=== PATIENT | male | born 1930 | race Hispanic/Latino ===

== ENCOUNTER 2018-01-02 15:37 | Emergency (ER) | payer MEDICARE ==
[~2018-01-02 15:37] MED LIST: AMIO200T2 PO; ATOR10 PO; DIGO125T87 PO; DUTA.5 PO; ESOM40CA PO; FURO40TA5 PO; MECL12.585 PO; NITR0.4T SL; RIVA20TA PO; SLOMG PO; SPIR25TA4 PO; TAMS0.4C32 PO
[2018-01-02] MEDS ORDERED: SODIUM CHLORIDE 0.9% 500ML 500 ML IV ONE (16:23)
[2018-01-02] MEDS ORDERED: MORPHINE SULFATE 4 MG/1ML SYG ONE (16:24)
[2018-01-02] MEDS ORDERED: ONDANSETRON HCL 4 MG/2 ML VIAL ONE (16:24)
[2018-01-02 16:35] LABS: BASOPHILS % (AUTO) 1.2 % (0.0-5.0); EOSINOPHILS % (AUTO) 1.4 % (0.0-8.0); HEMATOCRIT 38.3 % (42-54); LYMPHOCYTES % (AUTO) 14.4 % (21.0-51.0); MEAN CORPUSCULAR HEMOGLOBIN 32.6 pg (27.0-33.0); MEAN CORPUSCULAR HGB CONC 34.3 g/dL (32.0-36.0); NUCLEATED RED BLOOD CELLS 0.1 % (0.0-0.19); PLATELET COUNT (AUTO) 142 K/uL (130-400); RED BLOOD CELL COUNT(AUTO) 4.03 MIL/uL (4.50-6.20); RED CELL DISTRIBUTION WIDTH 14.3 % (11.0-15.5); WHITE BLOOD COUNT (AUTO) 5.2 K/uL (4.8-10.8)
[2018-01-02 16:46] LABS: CREATININE 1.3 mg/dL (0.5-1.5); POTASSIUM 4.1 mmol/L (3.5-5.1)
[2018-01-02 16:52] LABS: ALBUMIN 3.4 g/dL (3.5-5.0); BILIRUBIN,TOTAL 0.9 mg/dL (0.2-1.0); TOTAL PROTEIN, SERUM 7.9 g/dL (6.0-8.3)
[2018-01-02 17:07] LABS: INR 1.22 (0.85-1.15); PROTHROMBIN TIME 12.8 SEC (9.6-11.6)
[2018-01-02 17:28] LABS: BILIRUBIN,URINE Negative (NEGATIVE); COLOR,URINE Dark Yellow (YELLOW); GLUCOSE, URINE (UA) Negative (NEGATIVE); KETONES,URINE Trace mg/dL (NEGATIVE); LEUKOCYTE ESTERASE ,URINE Negative (NEGATIVE); NITRATE,URINE Negative (NEGATIVE); OCCULT BLOOD,URINE Negative (NEGATIVE); PH,URINE 5.5 (5.0-8.0); PROTEIN,URINE Negative (NEGATIVE)
[2018-01-02 17:29] LABS: APPEARANCE,URINE CLEAR (CLEAR)
[2018-01-02 17:55] LABS: BACTERIA,URINE Rare /HPF (None Seen); RBC,URINE 0-1 /HPF (0-1); SQUAMOUS EPITHELIAL CELL,UR Rare /LPF (0-2); WBC,URINE 0-1 /HPF (0-1)
[2018-01-02] MEDS ORDERED: IOPAMIDOL-370 75 ML VIAL IV ONE (18:06)
== END 2018-01-02 21:57 | disposition home or self-care (01) ==
LOC: EDH 15:37
DX: R10.84 Generalized abdominal pain (principal); K76.89 Other specified diseases of liver; I25.10 Atherosclerotic heart disease of native coronary artery without angina pectoris; I50.9 Heart failure, unspecified; I48.91 Unspecified atrial fibrillation; K21.9 Gastro-esophageal reflux disease without esophagitis; Z87.891 Personal history of nicotine dependence; Z95.1 Presence of aortocoronary bypass graft; Z88.0 Allergy status to penicillin
CPT/HCPCS: 36415; 71045; 74177; 80053; 81001; 83690; 84484; 85025; 85610; 85730; 93005; 96374; 99285; J2270; J2405; J7040; Q9967

== ENCOUNTER 2021-05-09 07:47 | Observation (INO) | payer MEDICARE ==
[~2021-05-09] VITALS: Ht 160 cm; Wt 61.2 kg
[2021-05-09] VITALS (12 sets, daily range): BP systolic 98–124; BP diastolic 51–73
[~2021-05-09 07:47] MED LIST changes: -AMIO200T2 PO; +CARV12.511 PO; +CETI10TA57 PO; +DIGO125T71 PO; -DIGO125T87 PO; -ESOM40CA PO; +HYDR-4064 PO; +LEVO25TA54 PO; +MAGN250T10 PO; -MECL12.585 PO; -NITR0.4T SL; +PANT40TA PO; +POTA20TA12 PO; -RIVA20TA PO; -SLOMG PO; -SPIR25TA4 PO
[2021-05-09 08:35] LABS: BASOPHILS % (AUTO) 0.8 % (0.0-5.0); HEMATOCRIT 40.6 % (42-54); MEAN CORPUSCULAR HEMOGLOBIN 35.3 pg (27.0-33.0); MEAN CORPUSCULAR HGB CONC 32.8 g/dL (32.0-36.0); MEAN CORPUSCULAR VOLUME 107.7 fL (79-99); MONOCYTES % (AUTO) 10.6 % (3.0-13.0); NEUTROPHILS % (AUTO) 55.3 % (40.0-77.0); PLATELET COUNT (AUTO) 74 K/uL (130-400); RED BLOOD CELL COUNT(AUTO) 3.77 MIL/uL (4.50-6.20); RED CELL DISTRIBUTION WIDTH 15.3 % (11.0-15.5); WHITE BLOOD COUNT (AUTO) 3.8 K/uL (4.8-10.8)
[2021-05-09 08:49] LABS: ALBUMIN 3.3 g/dL (3.5-5.0); BILIRUBIN,TOTAL 2.9 mg/dL (0.2-1.0); CREATININE 1.4 mg/dL (0.5-1.5); POTASSIUM 3.5 mmol/L (3.5-5.1); TOTAL PROTEIN, SERUM 7.2 g/dL (6.0-8.3)
[2021-05-09 09:01] LABS: INR 1.34 (0.85-1.15); PROTHROMBIN TIME 14.2 SEC (9.6-11.6)
[2021-05-09 09:11] LABS: B-TYPE NATRIURETIC PEPTIDE 2580 pg/mL (0-100)
[2021-05-09] MEDS ORDERED: IBUPROFEN 400 MG TABLET ONE ×2 (12:36→12:43)
[2021-05-09] MEDS ORDERED: HYDROCODONE/ACETAMINOPHEN 5/325 MG TAB ONE (16:38)
[2021-05-09] MEDS ORDERED: FUROSEMIDE 20MG VIAL ONE (16:38)
[2021-05-09] MEDS ORDERED: FUROSEMIDE 20MG VIAL IV ONE (17:00)
[2021-05-09] MEDS ORDERED: ALBUTEROL 0.083% 2.5 MG/3 ML INH IH ONE (17:00)
[2021-05-09] MEDS ORDERED: HYDROCODONE/ACETAMINOPHEN 5/325 MG TAB PO ONE (17:00)
[2021-05-09] MEDS ORDERED: OMEP40CA21 PO (17:21)
[2021-05-09] MEDS ORDERED: CARV3.1262 PO (17:21)
[2021-05-09] MEDS ORDERED: DIGO125T71 PO (17:21)
[2021-05-09] MEDS ORDERED: CYAN250010 PO (17:21)
[2021-05-09] MEDS ORDERED: FOLI0.8T3 PO (17:21)
[2021-05-09] MEDS ORDERED: CETI10TA57 PO (17:21)
[2021-05-09] MEDS ORDERED: MAGN400T53 PO (17:21)
[2021-05-09] MEDS ORDERED: FE F1CAP33 PO (17:21)
[2021-05-09] MEDS ORDERED: DIGOXIN 125 MCG TABLET PO SCH (18:30)
[2021-05-09] MEDS ORDERED: FUROSEMIDE 40MG VIAL IV SCH (20:00)
[2021-05-09] MEDS ORDERED: IPRATROPIUM 0.5 MG/2.5 ML INH IH ONE ×2 (20:25→21:00)
[2021-05-09] MEDS ORDERED: TAMSULOSIN HCL 0.4 MG CAP.ER.24H PO SCH (21:00)
[2021-05-09] MEDS ORDERED: ATORVASTATIN 10 MG TABLET PO SCH (21:00)
[2021-05-10] VITALS (7 sets, daily range): BP systolic 87–121; BP diastolic 41–68
[2021-05-10] MEDS ORDERED: IPRATROPIUM 0.5 MG/2.5 ML INH IH ONE ×3 (00:28→06:04)
[2021-05-10] MEDS ORDERED: ACETAMINOPHEN WITH CODEINE 1 TAB TAB PO PRN (05:30)
[2021-05-10] MEDS ORDERED: DOXYCYCLINE HYCLATE 100 MG TABLET PO SCH (06:00)
[2021-05-10 06:21] LABS: BASOPHILS % (AUTO) 0.6 % (0.0-5.0); EOSINOPHILS % (AUTO) 4.4 % (0.0-8.0); HEMATOCRIT 41.7 % (42-54); LYMPHOCYTES % (AUTO) 21.4 % (21.0-51.0); MEAN CORPUSCULAR HEMOGLOBIN 34.8 pg (27.0-33.0); MEAN CORPUSCULAR HGB CONC 32.1 g/dL (32.0-36.0); MEAN CORPUSCULAR VOLUME 108.3 fL (79-99); NEUTROPHILS % (AUTO) 64.4 % (40.0-77.0); PLATELET COUNT (AUTO) 76 K/uL (130-400); RED BLOOD CELL COUNT(AUTO) 3.85 MIL/uL (4.50-6.20); RED CELL DISTRIBUTION WIDTH 15.5 % (11.0-15.5)
[2021-05-10] MEDS ORDERED: LEVOTHYROXINE 25 MCG TABLET PO SCH (06:30)
[2021-05-10] MEDS: IPRATROPIUM 0.5 MG/2.5 ML INH IH SCH ×3 (06:30→11:27)
[2021-05-10 06:37] LABS: ALBUMIN 3.2 g/dL (3.5-5.0); BILIRUBIN,TOTAL 3.1 mg/dL (0.2-1.0); CREATININE 1.6 mg/dL (0.5-1.5); MAGNESIUM 2.2 mg/dL (1.80-2.40); POTASSIUM 3.5 mmol/L (3.5-5.1); TOTAL PROTEIN, SERUM 7.1 g/dL (6.0-8.3)
[2021-05-10] MEDS ORDERED: PANTOPRAZOLE 40 MG TAB DR PO SCH (07:30)
[2021-05-10] MEDS ORDERED: NON-FORMULARY MEDICATION 1 EACH (Cetirizine HCl 10 MG) PO SCH (09:00)
[2021-05-10] MEDS ORDERED: CETIRIZINE HCL 5 MG TABLET PO SCH (09:00)
[2021-05-10] MEDS ORDERED: NON-FORMULARY MEDICATION 1 EACH (Cyanocobalamin (Vitamin B-12) (Vitamin B12) 1,000 MCG) PO SCH (09:00)
[2021-05-10] MEDS ORDERED: FAMOTIDINE 20MG TAB PO SCH (09:00)
[2021-05-10] MEDS ORDERED: MAGNESIUM OXIDE 400 MG TABLET PO SCH (09:00)
[2021-05-10] MEDS ORDERED: CYANOCOBALAMIN (VITAMIN B-12) 1,000 MCG TABLET PO SCH (09:00)
[2021-05-10] MEDS ORDERED: FOLIC ACID 1 MG TABLET PO SCH (09:00)
[2021-05-10] MEDS ORDERED: ENOXAPARIN SODIUM 30 MG/0.3 ML SQ SCH (09:00)
[2021-05-10] MEDS ORDERED: NON-FORMULARY MEDICATION 1 EACH (Folic Acid 1 MG) PO SCH (09:00)
[2021-05-10] MEDS ORDERED: CARVEDILOL 3.125 MG TABLET PO SCH (10:00)
[2021-05-10] MEDS ORDERED: FUROSEMIDE 40MG VIAL IV SCH (11:00)
[2021-05-10] MEDS ORDERED: DOXY100T2 PO (17:16)
[2021-05-10] MEDS ORDERED: IPRATROPIUM 0.5 MG/2.5 ML INH IH SCH (19:00)
== END 2021-05-10 21:02 | disposition home or self-care (01) ==
LOC: EDH 07:47 → EDHIP 17:18
PROVIDERS: ADMIT Internal Medicine; ATTEND Internal Medicine
DX: I11.0 Hypertensive heart disease with heart failure (principal); I50.84 End stage heart failure; I50.22 Chronic systolic (congestive) heart failure; J96.21 Acute and chronic respiratory failure with hypoxia; I25.10 Atherosclerotic heart disease of native coronary artery without angina pectoris; Z20.822 Contact with and (suspected) exposure to COVID-19; I25.5 Ischemic cardiomyopathy; I27.20 Pulmonary hypertension, unspecified; I34.0 Nonrheumatic mitral (valve) insufficiency; N40.0 Benign prostatic hyperplasia without lower urinary tract symptoms; I48.20 Chronic atrial fibrillation, unspecified; G47.30 Sleep apnea, unspecified; J44.9 Chronic obstructive pulmonary disease, unspecified; I25.2 Old myocardial infarction; E78.00 Pure hypercholesterolemia, unspecified; K21.9 Gastro-esophageal reflux disease without esophagitis; Z79.01 Long term (current) use of anticoagulants; Z95.1 Presence of aortocoronary bypass graft; Z95.810 Presence of automatic (implantable) cardiac defibrillator
CPT/HCPCS: 36415 ×2; 71045; 76700; 80053 ×2; 82550; 83735; 83880 ×2; 84145; 84484; 85025 ×2; 85610; 87635; 87637; 87804 ×2; 93005; 93970; 94640 ×5; 94664; 96372; 96374; 96376 ×2; 99285; G0378 ×27; J1650; J1940 ×3